=== PATIENT | male | born 1965 | race Caucasian/White ===

== ENCOUNTER 2016-05-02 15:32 | Emergency (ER) | payer BC ==
--- NOTE | 2016-05-02 16:42 | DIAGNOSTIC IMAGING REPORT ---
PROCEDURE: XR CHEST 1 VIEW INDICATION: CHEST PAIN TECHNIQUE: Portable AP view 04:00 p.m. COMPARISON: Chest 11/16/2007 FINDINGS: Lungs are clear. Heart and mediastinum are normal. Thorax is normal. IMPRESSION: 1. Negative chest.
--- NOTE | 2016-05-02 17:18 | ED NURSING NOTES ---
Clinical Report - Nurses [address] [place] [address] 05/02/2016 15:33 Patient: TERENCE CRYSTAL TRIAGE Triage time 15:45. Acuity: LEVEL 3. Chief Complaint: CHEST PAIN and DISCOMFORT. 15:45 05/02/16. 15:53 05/02/16. Alert. ( Chest pain this AM at 0930 and lasted 40 min then again at 1500). --15:53 Walter José R.N. 15:45 05/02/16. BP: 198/108. HR: 101. RR: 15. O2 saturation: 100% on nasal cannula at 2 liters/minute. Temp: 98.2 F (oral). --15:53 Walter José R.N. Weight: 97.9 kg stated. Height/Length: 68 inches Per Patient. BMI: 32.8. --15:49 Walter José R.N. Medications Lantus Subcutaneous 50 units, 2x a day. --15:51 Walter José R.N. Novolog sliding scale. --15:51 Walter José R.N. ASA 81 mg, daily. --15:52 Walter José R.N. Prilosec Oral, , have not taken in a while. --15:52 Walter José R.N. Medication/allergy information source: the patient. --15:53 Walter José R.N. Allergies Actos. --15:52 Walter José R.N. Statins. --15:52 Walter José R.N. History Arrived by private vehicle. Historian: patient. Accompanied by family. Primary physician ([facility]). 15:45 05/02/16. This started today. 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 PAST MEDICAL HX: Immunizations: up-to-date. SOCIAL HX: Former smoker. Occasional alcohol use; consumes beer weekly. No drug use. FALL RISK ASSESSMENT: Fall risk assessment completed. No fall risk identified. NUTRITIONAL RISK ASSESSMENT: The nutritional risk assessment revealed no deficiencies. FUNCTIONAL ASSESSMENT: Functional assessment: no impairments noted. LEARNING NEEDS ASSESSMENT: The learning needs assessment revealed no barriers. SKIN INTEGRITY ASSESSMENT: Skin integrity risk assessment completed. No skin integrity risk identified. --15:53 Walter José R.N. SOCIAL HX: No infectious disease exposure. ABUSE ASSESSMENT: No report of abuse. --15:53 Walter José R.N. PROBLEMS: Gastroesophageal Reflux Disease. Diabetes Mellitus. --15:52 Walter José R.N. ADDITIONAL SURGERIES: Nasal surgery. --15:53 Walter José R.N. Assessment 15:45 05/02/16. --15:53 Walter José R.N. Interventions 15:45 05/02/16. 15:45 05/02/16. ID and allergy band on patient. To treatment room. --15:53 Walter José R.N. PHYSICAL ASSESSMENT 15:49 05/02/16. To room via wheelchair. GENERAL / NEURO / PSYCH: Alert. Oriented X 4. Appears in pain. RESPIRATORY: Respirations not labored. CVS: Normal sinus rhythm noted. SKIN: Skin is warm and dry. --15:49 Walter José R.N. NURSING PROGRESS NOTES 15:45 05/02/16. EKG time: (3401). EKG was ordered, performed by a tech and shown to the ED physician. --15:45 Walter José R.N. 15:49 05/02/16. The plan of care for this patient has been created. Oxygen administered at 2 liters. cook station, pulse oximeter and NIBP monitor placed on patient; monitor alarms on. Patient gowned. Head of bed elevated. Reassurance given. Two patient identifiers checked. Call light placed in reach. Side rails up x 2. Bed placed in lowest position. Brakes of bed on. Brakes of chair on. --15:49 Walter José R.N. 15:49 05/02/16. Cardiac rhythm: normal sinus rhythm. --15:49 Walter José R.N. 15:50 05/02/2016 Aspirin PO 325 mg given. Allergies verified and confirmed 5 rights. --15:50 Meaghan Viveros R.N. 15:54 05/02/2016 Site #1 started via IV in the right antecubital space with an 20g angiocath, with aseptic technique and good blood return; one attempt. Blood drawn: rainbow set. Labeled in the presence of the patient and sent to the lab. Saline lock flushed with 10 mL saline. --15:54 Walter José R.N. 15:54 05/02/16. BP: 190/97. HR: 99. RR: 18. O2 saturation: 100% on nasal cannula at 2 liters/minute. --15:55 Walter José R.N. 15:55 05/02/16. --15:55 Walter José R.N. 15:58 05/02/16. BP: 190/97. HR: 95. RR: 15. O2 saturation: 100% on nasal cannula at 2 liters/minute. Pain level now: 0/10. --15:59 Walter José R.N. 15:59 05/02/16. Cardiac rhythm: normal sinus rhythm. --15:59 Walter José R.N. 15:59 05/02/16. ( states pain is a 1/10 prior to NTG). --15:59 Walter José R.N. 16:00 05/02/2016 Nitroglycerin SL 0.4 mg given. Allergies verified and confirmed 5 rights. --16:00 Walter José R.N. 16:08 05/02/16. Cardiac rhythm: normal sinus rhythm. --16:08 Walter José R.N. 16:08 05/02/16. BP: 177/99. HR: 99. RR: 14. O2 saturation: 100% on nasal cannula at 2 liters/minute. --16:08 Walter José R.N. 16:56 05/02/16. BP: 151/80. HR: 88. RR: 18. O2 saturation: 100% on nasal cannula at 2 liters/minute. --16:56 Walter José R.N. 16:56 05/02/16. Cardiac rhythm: normal sinus rhythm. --16:56 Walter José R.N. 16:56 05/02/16. Patient and family informed about reason for wait and about plan of care. --16:56 Walter José R.N. 17:06 05/02/16. ( ERMD talking with Cardiology for referral). --17:06 Walter José R.N. 17:24 05/02/16. BP: 142/75. HR: 90. RR: 14. O2 saturation: 100% on nasal cannula at 2 liters/minute. --17:24 Walter José R.N. 17:24 05/02/16. Cardiac rhythm: normal sinus rhythm; (85). --17:24 Walter José R.N. 17:25 05/02/16. ( Pt to transfer to [facility]). --17:25 Walter José R.N. 17:40 05/02/16. ( Pt to transfer due to indeterminate troponins). --17:40 Walter José R.N. 17:55 05/02/2016 Heparin IVP 5000 unit given over 1 minute(s) via site #1. Allergies verified and confirmed 5 rights. IV patency established. IV site checked: no pain, redness, or swelling. IV flushed thoroughly pre- and post-medication administration. IVP given by RN (Double verified with additional RN). --17:55 Walter José R.N. 17:57 05/02/2016 Heparin 25,000 Units in 500 mLs * Drip IV 1000 Units/hr 20 mLs/hr 1000 units/hr --17:57 Walter José R.N. 17:58 05/02/16. Cardiac rhythm: normal sinus rhythm. --17:58 Walter José R.N. 17:57 05/02/16. BP: 152/78. HR: 88. RR: 15. O2 saturation: 99% on nasal cannula at 2 liters/minute. Pain level now: 0/10. --17:58 Walter José R.N. 17:58 05/02/16. ( Pt to transfer due to ECG changes). --17:58 Walter José R.N. 18:06 05/02/16. ( Oral care completed, pt is NPO, pt does not have chest pain, pt c/o pain from the left elbow down). --18:06 Walter José R.N. 18:12 05/02/16. Patient and family informed about reason for wait and about plan of care. --18:12 Walter José R.N. 18:12 05/02/16. Patient waiting for transportation and admit bed. --18:12 Walter José R.N. 18:31 05/02/16. ( Blood drawn, 2nd trop, by collision technician). --18:31 Walter José R.N. 19:05/02/16. Cardiac rhythm: normal sinus rhythm. --19:01 Walter José R.N. 19:01 05/02/16. BP: 137/77. HR: 86. RR: 14. O2 saturation: 100% on nasal cannula at 2 liters/minute. --19:01 Walter José R.N. 19:02 05/02/16. ( Denies pain except for pain from left elbow down to left hand). --19:02 Walter José R.N. 19:02 05/02/16. Patient and family informed about reason for wait and about plan of care. --19:02 Walter José R.N. 19:08 05/02/16. Care transferred and report given. --19:08 Walter José R.N. 19:47 05/02/16. BP: 143/78. HR: 80. O2 saturation: 97%. --19:48 Vickey Storm R.N. ( Pt resting in bed in no distress no signs of bleeding verbalized understanding of discharge instructions). --20:08 Vickey Storm R.N. Finger stick glucose: 2020: 196 mg/dL. --20:28 Renuka Hardin ( Pt ambulated from bathroom steady on his feet, pt given sandwich per MD). --20:39 Vickey Storm R.N. 21:15 05/02/16. BP: 149/78. HR: 76. RR: 18. O2 saturation: 98%. Pain level now 0/10. --21:16 Vickey Storm R.N. DISPOSITION / DISCHARGE 17:24 05/02/16. Patient's personal items include, All Belongings given to family. --17:24 Walter José R.N. Report was given to a nurse via a phone call. Report included patient's care, treatment, medications, reviewed medication reconcilliation, and condition (including any recent changes or anticipated changes). All questions were answered. Report was acknowledged. (Report called to rufina rodgers). Patient has no belongings. Patient's personal items include: shirt and pants. --20:27 Vickey Storm R.N. 20:26 05/02/16. BP: 144/63. HR: 75. O2 saturation: 100%. --20:27 Vickey Storm R.N. Departure time: 2220 22:22 May 02 2016. The patient was discharged by the physician. He left the Emergency Department via ambulance. Transported via stretcher. ( Pt transferred via gurney and ems and out of facility. Pt alert and oriented no needs at this). Patient's personal items include, shoes 22:22 May 02 2016. --22:22 Vickey Storm R.N. 22:20 05/02/16. BP: 125/70. HR: 76. RR: 18. O2 saturation: 100%. Temp: 98.0 F. Pain level now 1/10. --22:22 Vickey Storm R.N. Locked/Released at 05/03/2016 3:00 by Vickey Storm R.N.
--- NOTE | 2016-05-02 17:18 | ED ORDER SUMMARY ---
..... Patient: TERENCE CRYSTAL OrderSheet [facility] VisitID: [id number] [place] [address] 51y, M Registration Date/Time: 05/02/2016 ORDER SHEET Weight: 97.9 kg (stated) Allergies: Actos, Statins GENERAL ORDERS: Compliance Coordinator (Continuous) (15:54 05/02/2016 JBoardley R.N. per protocol) (15:54 JBoardley R.N.) Chest 1V Urgent (15:54 05/02/2016 JBoardley R.N. per protocol) (16:02 JBoardley R.N.) Cardiac Panel Stat (15:54 05/02/2016 JBoardley R.N. per protocol) (16:37 JBoardley R.N.) Oxygen (2 L/min) (NC) (15:54 05/02/2016 JBoardley R.N. per protocol) (15:54 JBoardley R.N.) Pulse oximeter (15:54 05/02/2016 JBoardley R.N. per protocol) (15:54 JBoardley R.N.) EKG - ER Stat (15:54 05/02/2016 JBoardley R.N. per protocol) (15:54 JBoardley R.N.) Troponin-I Urgent (18:02 05/02/2016 Christopher Russo) (18:30 JBoardley R.N.) MEDICATION ORDERS: Aspirin PO 325 mg (Do not crush or chew, NOW) (15:50 05/02/2016 MWinterer R.N. per protocol) (15:50 MWinterer R.N.) NitroGLYCERIN SL 0.4 mg (x3 PRN Chest Pain) (16:00 05/02/2016 JBoardley R.N. verbal order read back to Christopher Russo) (16:00 JBoardley R.N.) IV FLUIDS: IV Saline Lock (15:54 05/02/2016 JBoardley R.N. per protocol) (15:54 JBoardley R.N.) Heparin IV : initial bolus 60 units/kg, then none - for X1 (HIGH ALERT MEDICATION) (max 5000 units) (17:43 05/02/2016 Christopher Russo) (Ack 17:43 Evelyn R.N.) (17:55 Evelyn R.N.) Heparin IV : initial bolus none -, then 12 units/kg/hr for 24h (HIGH ALERT MEDICATION, NOW) (max dose of 1000 units an hour) (17:43 05/02/2016 Christopher Russo) (Ack 17:44 Evelyn R.N.) (17:57 Evelyn R.N.) ORDER SHEET NOTES: [Electronically signed by Vickey Storm R.N. (03:00 05/03/2016)] [Electronically signed by Marvin Fierro Dr. (19:17 05/04/2016)] [Electronically locked/signed by Vickey Storm R.N. (03:00 05/03/2016)]
--- NOTE | 2016-05-02 17:18 | ED ORDER SUMMARY ---
..... Patient: TERENCE CRYSTAL OrderSheet [facility] VisitID: [id number] [place] [address] 51y, M Registration Date/Time: 05/02/2016 ORDER SHEET Weight: 97.9 kg (stated) Allergies: Actos, Statins GENERAL ORDERS: Partnership Manager (Continuous) (15:54 05/02/2016 JBoardley R.N. per protocol) (15:54 JBoardley R.N.) Chest 1V Urgent (15:54 05/02/2016 JBoardley R.N. per protocol) (16:02 JBoardley R.N.) Cardiac Panel Stat (15:54 05/02/2016 JBoardley R.N. per protocol) (16:37 JBoardley R.N.) Oxygen (2 L/min) (NC) (15:54 05/02/2016 JBoardley R.N. per protocol) (15:54 JBoardley R.N.) Pulse oximeter (15:54 05/02/2016 JBoardley R.N. per protocol) (15:54 JBoardley R.N.) EKG - ER Stat (15:54 05/02/2016 JBoardley R.N. per protocol) (15:54 JBoardley R.N.) Troponin-I Urgent (18:02 05/02/2016 Christopher Russo) (18:30 JBoardley R.N.) MEDICATION ORDERS: Aspirin PO 325 mg (Do not crush or chew, NOW) (15:50 05/02/2016 MWinterer R.N. per protocol) (15:50 MWinterer R.N.) NitroGLYCERIN SL 0.4 mg (x3 PRN Chest Pain) (16:00 05/02/2016 JBoardley R.N. verbal order read back to Christopher Russo) (16:00 JBoardley R.N.) IV FLUIDS: IV Saline Lock (15:54 05/02/2016 JBoardley R.N. per protocol) (15:54 JBoardley R.N.) Heparin IV : initial bolus 60 units/kg, then none - for X1 (HIGH ALERT MEDICATION) (max 5000 units) (17:43 05/02/2016 Christopher Russo) (Ack 17:43 Evelyn R.N.) (17:55 Evelyn R.N.) Heparin IV : initial bolus none -, then 12 units/kg/hr for 24h (HIGH ALERT MEDICATION, NOW) (max dose of 1000 units an hour) (17:43 05/02/2016 Christopher Russo) (Ack 17:44 Evelyn R.N.) (17:57 Evelyn R.N.) ORDER SHEET NOTES: [Electronically signed by Vickey Storm R.N. (03:00 05/03/2016)] [Electronically signed by Marvin Fierro Dr. (19:17 05/04/2016)] [Electronically locked/signed by Vickey Storm R.N. (03:00 05/03/2016)]
--- NOTE | 2016-05-02 17:18 | ED NURSING NOTES ---
Clinical Report - Nurses [address] [place] [address] 05/02/2016 15:33 Patient: TERENCE CRYSTAL TRIAGE Triage time 15:45. Acuity: LEVEL 3. Chief Complaint: CHEST PAIN and DISCOMFORT. 15:45 05/02/16. 15:53 05/02/16. Alert. ( Chest pain this AM at 0930 and lasted 40 min then again at 1500). --15:53 Walter José R.N. 15:45 05/02/16. BP: 198/108. HR: 101. RR: 15. O2 saturation: 100% on nasal cannula at 2 liters/minute. Temp: 98.2 F (oral). --15:53 Walter José R.N. Weight: 97.9 kg stated. Height/Length: 68 inches Per Patient. BMI: 32.8. --15:49 Walter José R.N. Medications Lantus Subcutaneous 50 units, 2x a day. --15:51 Walter José R.N. Novolog sliding scale. --15:51 Walter José R.N. ASA 81 mg, daily. --15:52 Walter José R.N. Prilosec Oral, , have not taken in a while. --15:52 Walter José R.N. Medication/allergy information source: the patient. --15:53 Walter José R.N. Allergies Actos. --15:52 Walter José R.N. Statins. --15:52 Walter José R.N. History Arrived by private vehicle. Historian: patient. Accompanied by family. Primary physician ([facility]). 15:45 05/02/16. This started today. 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 PAST MEDICAL HX: Immunizations: up-to-date. SOCIAL HX: Former smoker. Occasional alcohol use; consumes beer weekly. No drug use. FALL RISK ASSESSMENT: Fall risk assessment completed. No fall risk identified. NUTRITIONAL RISK ASSESSMENT: The nutritional risk assessment revealed no deficiencies. FUNCTIONAL ASSESSMENT: Functional assessment: no impairments noted. LEARNING NEEDS ASSESSMENT: The learning needs assessment revealed no barriers. SKIN INTEGRITY ASSESSMENT: Skin integrity risk assessment completed. No skin integrity risk identified. --15:53 Walter José R.N. SOCIAL HX: No infectious disease exposure. ABUSE ASSESSMENT: No report of abuse. --15:53 Walter José R.N. PROBLEMS: Gastroesophageal Reflux Disease. Diabetes Mellitus. --15:52 Walter José R.N. ADDITIONAL SURGERIES: Nasal surgery. --15:53 Walter José R.N. Assessment 15:45 05/02/16. --15:53 Walter José R.N. Interventions 15:45 05/02/16. 15:45 05/02/16. ID and allergy band on patient. To treatment room. --15:53 Walter José R.N. PHYSICAL ASSESSMENT 15:49 05/02/16. To room via wheelchair. GENERAL / NEURO / PSYCH: Alert. Oriented X 4. Appears in pain. RESPIRATORY: Respirations not labored. CVS: Normal sinus rhythm noted. SKIN: Skin is warm and dry. --15:49 Walter José R.N. NURSING PROGRESS NOTES 15:45 05/02/16. EKG time: (0990). EKG was ordered, performed by a tech and shown to the ED physician. --15:45 Walter José R.N. 15:49 05/02/16. The plan of care for this patient has been created. Oxygen administered at 2 liters. school bus monitor, pulse oximeter and NIBP monitor placed on patient; monitor alarms on. Patient gowned. Head of bed elevated. Reassurance given. Two patient identifiers checked. Call light placed in reach. Side rails up x 2. Bed placed in lowest position. Brakes of bed on. Brakes of chair on. --15:49 Walter José R.N. 15:49 05/02/16. Cardiac rhythm: normal sinus rhythm. --15:49 Walter José R.N. 15:50 05/02/2016 Aspirin PO 325 mg given. Allergies verified and confirmed 5 rights. --15:50 Meaghan Viveros R.N. 15:54 05/02/2016 Site #1 started via IV in the right antecubital space with an 20g angiocath, with aseptic technique and good blood return; one attempt. Blood drawn: rainbow set. Labeled in the presence of the patient and sent to the lab. Saline lock flushed with 10 mL saline. --15:54 Walter José R.N. 15:54 05/02/16. BP: 190/97. HR: 99. RR: 18. O2 saturation: 100% on nasal cannula at 2 liters/minute. --15:55 Walter José R.N. 15:55 05/02/16. --15:55 Walter José R.N. 15:58 05/02/16. BP: 190/97. HR: 95. RR: 15. O2 saturation: 100% on nasal cannula at 2 liters/minute. Pain level now: 0/10. --15:59 Walter José R.N. 15:59 05/02/16. Cardiac rhythm: normal sinus rhythm. --15:59 Walter Joés R.N. 15:59 05/02/16. ( states pain is a 1/10 prior to NTG). --15:59 Walter José R.N. 16:00 05/02/2016 Nitroglycerin SL 0.4 mg given. Allergies verified and confirmed 5 rights. --16:00 Walter José R.N. 16:08 05/02/16. Cardiac rhythm: normal sinus rhythm. --16:08 Walter José R.N. 16:08 05/02/16. BP: 177/99. HR: 99. RR: 14. O2 saturation: 100% on nasal cannula at 2 liters/minute. --16:08 Walter José R.N. 16:56 05/02/16. BP: 151/80. HR: 88. RR: 18. O2 saturation: 100% on nasal cannula at 2 liters/minute. --16:56 Walter José R.N. 16:56 05/02/16. Cardiac rhythm: normal sinus rhythm. --16:56 Walter José R.N. 16:56 05/02/16. Patient and family informed about reason for wait and about plan of care. --16:56 Walter José R.N. 17:06 05/02/16. ( ERMD talking with Cardiology for referral). --17:06 Walter José R.N. 17:24 05/02/16. BP: 142/75. HR: 90. RR: 14. O2 saturation: 100% on nasal cannula at 2 liters/minute. --17:24 Walter José R.N. 17:24 05/02/16. Cardiac rhythm: normal sinus rhythm; (85). --17:24 Walter José R.N. 17:25 05/02/16. ( Pt to transfer to [facility]). --17:25 Walter José R.N. 17:40 05/02/16. ( Pt to transfer due to indeterminate troponins). --17:40 Walter José R.N. 17:55 05/02/2016 Heparin IVP 5000 unit given over 1 minute(s) via site #1. Allergies verified and confirmed 5 rights. IV patency established. IV site checked: no pain, redness, or swelling. IV flushed thoroughly pre- and post-medication administration. IVP given by RN (Double verified with additional RN). --17:55 Walter José R.N. 17:57 05/02/2016 Heparin 25,000 Units in 500 mLs * Drip IV 1000 Units/hr 20 mLs/hr 1000 units/hr --17:57 Walter José R.N. 17:58 05/02/16. Cardiac rhythm: normal sinus rhythm. --17:58 Walter José R.N. 17:57 05/02/16. BP: 152/78. HR: 88. RR: 15. O2 saturation: 99% on nasal cannula at 2 liters/minute. Pain level now: 0/10. --17:58 Walter José R.N. 17:58 05/02/16. ( Pt to transfer due to ECG changes). --17:58 Walter José R.N. 18:06 05/02/16. ( Oral care completed, pt is NPO, pt does not have chest pain, pt c/o pain from the left elbow down). --18:06 Walter José R.N. 18:12 05/02/16. Patient and family informed about reason for wait and about plan of care. --18:12 Walter José R.N. 18:12 05/02/16. Patient waiting for transportation and admit bed. --18:12 Walter José R.N. 18:31 05/02/16. ( Blood drawn, 2nd trop, by ekg tech). --18:31 Walter José R.N. 19:05/02/16. Cardiac rhythm: normal sinus rhythm. --19:01 Walter José R.N. 19:01 05/02/16. BP: 137/77. HR: 86. RR: 14. O2 saturation: 100% on nasal cannula at 2 liters/minute. --19:01 Walter José R.N. 19:02 05/02/16. ( Denies pain except for pain from left elbow down to left hand). --19:02 Walter José R.N. 19:02 05/02/16. Patient and family informed about reason for wait and about plan of care. --19:02 Walter José R.N. 19:08 05/02/16. Care transferred and report given. --19:08 Walter José R.N. 19:47 05/02/16. BP: 143/78. HR: 80. O2 saturation: 97%. --19:48 Vickey Storm R.N. ( Pt resting in bed in no distress no signs of bleeding verbalized understanding of discharge instructions). --20:08 Vickey Storm R.N. Finger stick glucose: 2020: 196 mg/dL. --20:28 Renuka Hardin ( Pt ambulated from bathroom steady on his feet, pt given sandwich per MD). --20:39 Vickey Storm R.N. 21:15 05/02/16. BP: 149/78. HR: 76. RR: 18. O2 saturation: 98%. Pain level now 0/10. --21:16 Vickey Storm R.N. DISPOSITION / DISCHARGE 17:24 05/02/16. Patient's personal items include, All Belongings given to family. --17:24 Walter José R.N. Report was given to a nurse via a phone call. Report included patient's care, treatment, medications, reviewed medication reconcilliation, and condition (including any recent changes or anticipated changes). All questions were answered. Report was acknowledged. (Report called to rufina rodgers). Patient has no belongings. Patient's personal items include: shirt and pants. --20:27 Vickey Storm R.N. 20:26 05/02/16. BP: 144/63. HR: 75. O2 saturation: 100%. --20:27 Vickey Storm R.N. Departure time: 2220 22:22 May 02 2016. The patient was discharged by the physician. He left the Emergency Department via ambulance. Transported via stretcher. ( Pt transferred via gurney and ems and out of facility. Pt alert and oriented no needs at this). Patient's personal items include, shoes 22:22 May 02 2016. --22:22 Vickey Storm R.N. 22:20 05/02/16. BP: 125/70. HR: 76. RR: 18. O2 saturation: 100%. Temp: 98.0 F. Pain level now 1/10. --22:22 Vickey Storm R.N. Locked/Released at 05/03/2016 3:00 by Vickey Storm R.N.
--- NOTE | 2016-05-02 17:18 | ED CLINICAL REPORT ---
Clinical Report - Physicians/Mid Levels [facility] [address] [place] [place] [address] 05/02/2016 15:33 Patient: TERENCE CRYSTAL Arrived- By private vehicle. Historian- patient. HISTORY OF PRESENT ILLNESS Chief Complaint: CHEST PAIN. At its maximum, severity described as moderate. When seen in the E.D., severity described as moderate. Modifying factors- worsened by exertion. Relieved by rest. This started today, is still present but is better now and is now gone. It was abrupt in onset and has been constant. Onset during moderate exertion. It is described as pressure and tightness and it is described as located in the left chest area and radiating to the left jaw and left arm. The patient has had difficulty breathing and nausea and has experienced diaphoresis. No vomiting. (states he was walking from the barn to the house. reports no hx of PE/DVT, leg swelling, recent trauma, surgeries, or hemoptysis.). Similar symptoms previously: (reports having chest pain in the past but not this bad). Recent medical care: Not recently seen/assessed. REVIEW OF SYSTEMS No fever, chills, pedal edema or calf pain. All systems otherwise negative, except as recorded above. PAST HISTORY See nurses notes. Denies the following risk factors for DVT/PE - history of DVT and pulmonary embolism, recent surgery, recent CO and congestive heart failure. Denies the following risk factors for DVT/PE - cancer, clotting disorder, estrogens, obesity and immobility. Denies the following risk factors for DVT/PE - advanced in age and vena cava filter. SOCIAL HISTORY Former smoker. No alcohol use or drug use. No recent travel. Is a local resident. FAMILY HISTORY History of heart disease in first-degree relative (mother and father) (unsure age). ADDITIONAL NOTES The nursing notes have been reviewed. PHYSICAL EXAM Vital Signs: 05/02/2016 15:45 BP: 198/108. HR: 101. RR: 15. O2 saturation: 100%. Temp: 98.2 F. Hypertensive. Oxygen saturation normal. Appearance: Alert. Oriented X3. No acute distress. Eyes: Pupils equal, round and reactive to light. Eyes normal inspection. ENT: Ears normal. Nose normal. Pharynx normal. Neck: Normal inspection. Neck supple. No JVD. CVS: Normal heart rate and rhythm. Heart sounds normal. Pulses normal. No decreased pulses. Respiratory: No respiratory distress. Breath sounds normal. Chest nontender. No rales, rhonchi or wheezes. Abdomen: Soft and nontender. Bowel sounds normal. No organomegaly. No mass. Back: Normal external inspection. Skin: Skin warm and dry. Normal skin color. No rash. Normal skin turgor. Extremities: Extremities exhibit normal ROM. No lower extremity edema. LABS, X-RAYS, AND EKG EKG: No acute ischemia. Normal sinus rhythm. Rate: 98. Normal P waves. Normal STEF. Normal QRS complex. Normal axis. Normal ST and T waves, QT and QTc. No ST elevation or depression. Machine reads "STEMI" however patient without reciprocal changes, elevation is not > or = to 1 box high, and not in two contiguous leads. Does have poor R wave progression. The study has been interpreted contemporaneously. The study has been independently viewed by me. The EKG appears to be a good tracing. I do not agree with or confirm the computer reading of the EKG. Chest X-ray: No acute disease. Normal lung markings present. Normal heart size. No infiltrate. Views: PA. The X-rays were independently viewed by me and interpreted contemporaneously by me. Laboratory Tests: CBC w Diff: (DARIANA: 05/02/2016 15:49) ( MsgRcvd 05/02/2016 16:21) Final results Test Result Flag Units (Reference) WHITE BLOOD COUNT 9.1 K/uL (4.5-11.5) RED BLOOD COUNT 5.65 M/uL (4.50-5.90) HEMOGLOBIN 16.4 gm/dL (13.5-17.5) HEMATOCRIT 48.6 % (41.0-53.0) MEAN CELL VOLUME 86 fL (80-100) MEAN CORPUSCULAR HGB 29 pg (26-34) MEAN CORPUSCULAR HGB CONC 34 g/dL (31-37) RED CELL DISTRIBUTION WIDTH 13.6 % (11.6-14.8) PLATELET COUNT 172 K/uL (150-400) NEUTROPHIL % 67.1 % (50-75) LYMPH % 22.4 L % (25-40) MONO % 7.4 % (3-14) EOSINOPHIL % 2.4 % (0-4) BASOPHIL % 0.7 % (0-2) Troponin-I: (DARIANA: 05/02/2016 18:25) ( [facility] 05/02/2016 19:06) Final results Test Result Flag Units (Reference) TROPONIN I 0.66 ng/mL (0.00-1.5) TROPONIN REFERENCE RANGE:<0.1 NEGATIVE0.1-1.5 INDETERMINANT>1.5 POSITIVE CHEM 13 PANEL: (DARIANA: 05/02/2016 15:49) ( [facility] 05/02/2016 16:45) Final results Test Result Flag Units (Reference) GLUCOSE 316 H mg/dL (70-110) BUN 18 mg/dL (7-18) CREATININE 1.4 H mg/dL (0.6-1.3) Estimated GFR 56.34 mL/min Estimated GFR- >60 mL/min Note: Persistent reduction over 3 months in eGFR<60 mL/min/1.73 m2 defines CKD. Patients with eGFR values>=60 mL/min/1.73 m2 may also have CKD if evidence ofpersistent proteinuria. Additional information may be foundat www.[email or web address].org. SODIUM 137 mmol/L (136-145) POTASSIUM 3.9 mmol/L (3.5-5.1) CHLORIDE 101 mmol/L (98-107) CARBON DIOXIDE 26 mmol/L (21-32) CALCIUM 9.2 mg/dL (8.5-10.1) TOTAL PROTEIN 7.7 g/dL (6.4-8.2) ALBUMIN 4.0 g/dL (3.3-5.0) BILIRUBIN, TOTAL 0.7 mg/dL (0.0-1.0) ALKALINE PHOSPHATASE 77 U/L (46-116) AST (SGOT) 50 H U/L (15-37) ALT (SGPT) 97 H U/L (12-78) CPK 445 H U/L (24-260) MAGNESIUM 1.9 mg/dL (1.8-2.4) CK-MB 14.0 H ng/mL (0.5-3.2) %CKMB 3.1 % (0.0-4.0) TROPONIN I 0.36 ng/mL (0.00-1.5) TROPONIN REFERENCE RANGE:<0.1 NEGATIVE0.1-1.5 INDETERMINANT>1.5 POSITIVE . PROGRESS AND PROCEDURES Course of Care: The patient is a pleasant 51-year-old male with past medical history significant for hypertension, cholesterol cholesterol, diabetes presenting for evaluation of chest pain. The patient is currently resting in bed and in no acute distress. Patient is currently pain-free. The patient's EKG that was ordered from triage shows a some slight ST segment abnormalities. This does not meet criteria for STEMI In contrast to what the computer read is saying. The patient does have risk factors for acute coronary artery syndrome and will be evaluated with troponin as well as d-dimer for evaluation of pulmonary embolism and thoracic aortic aneurysm. chest x-ray and complete blood cell count was electrolyzes of also been ordered. Patient is agreeable to the treatment and plan. Patient's workup was significant for an intermediate troponin. Because of the patient's constellation of signs and symptoms here in the emergency department as well as the story that he had presented with, and concern for non-STEMI. Cardiology was called and recommended the patient be started on heparin and transferred to their facility. Spoke with Dr. Dubois. we will speak to the hospitalist in regards to admission of the patient to their facility via transfer. We spoke to the data warehouse consultant over at [facility] in [facility] in regards to the patient's workup. The patient will be transferred there as they do have beds. We are currently awaiting consult with the hospitalist who will be the that's accepting. We have spoken to the hospitalist and Sony explained to the patient's clinical presentation up until this point. Patient will be admitted to the hospital. Accepting doctor is Dr. Mazariegos. No further recommendations noted. We're currently waiting the patient's bed to be cleared and ready for transport. Discussed with patient workup and plan as well as course while here in the emergency department. Patient was agreeable to the treatment and plan. Informed written consent obtained for transfer to [facility]. That number available. Patient was transferred without incident. Just prior to patient's transfer, troponin noted to be increasing from the indeterminate range. Patient's troponin is 0.66. Troponin is still in the indeterminate range. Critical care performed (70 minutes). Time is exclusive of separately billable procedures. Time includes: direct patient care, patient reassessment, coordination of patient care, interpretation of data (laboratory data and chest xrays), review of patient's medical records, medical consultation, family consultation regarding treatment decisions and documentation of patient care. Disposition: Benefits, risks and alternatives to transfer explained to patient and family. Transferred to [facility]. CLINICAL IMPRESSION NSTEMI. (Electronically signed by Marvin Fierro Dr. 05/04/2016 19:17)
--- NOTE | 2016-05-04 19:18 | ED DISCHARGE INSTRUCTIONS ---
Patient: TERENCE CRYSTAL General Instructions [facility] VisitID: [id number] [address] [place] [address] 51y, M Registration Date/Time: 05/02/2016 NSTEMI. (Electronically signed by Marvin Fierro Dr. 05/04/2016 19:17)
--- NOTE | 2016-05-04 19:18 | ED MAR SUMMARY ---
..... Medication Administration Record [facility] [address] [place] [address] Patient: TERENCE CRYSTAL Visit ID: [id number] 51y, M Weight: 97.9 kg Height/Length: 68 in BMI: 32.8 ALLERGIES: Actos, Statins Given 15:50 05/02/2016 Meaghan Viveros R.N. Medication Administered: ASPIRIN [PO], Dose: 325 mg PO. Medication Ordered: Aspirin PO 325 mg (Do not crush or chew, NOW). Given 16:00 05/02/2016 Walter José R.N. Medication Administered: NITROGLYCERIN [SL], Dose: 0.4 mg SL. Medication Ordered: NitroGLYCERIN SL 0.4 mg (x3 PRN Chest Pain). Given 17:55 05/02/2016 Walter José R.N. Medication Administered: HEPARIN [IVP], Dose: 5000 unit IVP over 1 minute(s), Site: #1 right AC. Medication Ordered: Heparin IV : initial bolus 60 units/kg, then none - for X1 (HIGH ALERT MEDICATION) (max 5000 units). Start 17:57 05/02/2016 Walter José R.N. Medication Administered: Heparin 25,000 Units in 500 mLs *, Dose: 1000 Units/hr * Drip IV. Medication Ordered: Heparin IV : initial bolus none -, then 12 units/kg/hr for 24h (HIGH ALERT MEDICATION, NOW) (max dose of 1000 units an hour).
--- NOTE | 2016-05-04 19:18 | ED MAR SUMMARY ---
..... Medication Administration Record [facility] [address] [place] [address] Patient: TERENCE CRYSTAL Visit ID: [id number] 51y, M Weight: 97.9 kg Height/Length: 68 in BMI: 32.8 ALLERGIES: Actos, Statins Given 15:50 05/02/2016 Meaghan Viveros R.N. Medication Administered: ASPIRIN [PO], Dose: 325 mg PO. Medication Ordered: Aspirin PO 325 mg (Do not crush or chew, NOW). Given 16:00 05/02/2016 Walter José R.N. Medication Administered: NITROGLYCERIN [SL], Dose: 0.4 mg SL. Medication Ordered: NitroGLYCERIN SL 0.4 mg (x3 PRN Chest Pain). Given 17:55 05/02/2016 Walter José R.N. Medication Administered: HEPARIN [IVP], Dose: 5000 unit IVP over 1 minute(s), Site: #1 right AC. Medication Ordered: Heparin IV : initial bolus 60 units/kg, then none - for X1 (HIGH ALERT MEDICATION) (max 5000 units). Start 17:57 05/02/2016 Walter José R.N. Medication Administered: Heparin 25,000 Units in 500 mLs *, Dose: 1000 Units/hr * Drip IV. Medication Ordered: Heparin IV : initial bolus none -, then 12 units/kg/hr for 24h (HIGH ALERT MEDICATION, NOW) (max dose of 1000 units an hour).
--- NOTE | 2016-05-04 19:18 | ED DISCHARGE INSTRUCTIONS ---
Patient: TERENCE CRYSTAL General Instructions [facility] VisitID: [id number] [address] [place] [address] 51y, M Registration Date/Time: 05/02/2016 NSTEMI. (Electronically signed by Marvin Fierro Dr. 05/04/2016 19:17)
--- NOTE | 2016-05-04 19:18 | ED MED RECONCILIATION SUMMARY ---
Patient: TERENCE CRYSTAL Liz Medication Reconciliation Report [facility] VisitID: [id number] [address] [place] [address] 51y, M Registration Date/Time: 05/02/2016 Weight: 97.9 kg Height/Length: 68 in. BMI: 32.8 ALLERGIES: Actos, Statins The patient's Home Medications are listed below: THE FOLLOWING MEDICATIONS NEED TO BE RECONCILED: ASA 81 mg, daily Lantus Subcutaneous 50 units, 2x a day Novolog sliding scale Prilosec Oral, have not taken in a while The source(s) of the original Home Medication information: patient The following Medications were given to the patient in the Emergency Department: Aspirin [PO] PO 325 mg, administered: 05/02/2016 3:50:00 PM Nitroglycerin [SL] SL 0.4 mg, administered: 05/02/2016 4:00:00 PM Heparin [IVP] IVP 5000 unit, administered: 05/02/2016 5:55:00 PM Heparin 25,000 Units in 500 mLs Drip IV bolus 0, then 1000 Units/hr, administered: 05/02/2016 5:57:00 PM The following Medications were prescribed to the patient: None.
--- NOTE | 2016-05-04 19:18 | ED MED RECONCILIATION SUMMARY ---
Patient: TERENCE CRYSTAL Liz Medication Reconciliation Report [facility] VisitID: [id number] [address] [place] [address] 51y, M Registration Date/Time: 05/02/2016 Weight: 97.9 kg Height/Length: 68 in. BMI: 32.8 ALLERGIES: Actos, Statins The patient's Home Medications are listed below: THE FOLLOWING MEDICATIONS NEED TO BE RECONCILED: ASA 81 mg, daily Lantus Subcutaneous 50 units, 2x a day Novolog sliding scale Prilosec Oral, have not taken in a while The source(s) of the original Home Medication information: patient The following Medications were given to the patient in the Emergency Department: Aspirin [PO] PO 325 mg, administered: 05/02/2016 3:50:00 PM Nitroglycerin [SL] SL 0.4 mg, administered: 05/02/2016 4:00:00 PM Heparin [IVP] IVP 5000 unit, administered: 05/02/2016 5:55:00 PM Heparin 25,000 Units in 500 mLs Drip IV bolus 0, then 1000 Units/hr, administered: 05/02/2016 5:57:00 PM The following Medications were prescribed to the patient: None.
== END 2016-05-02 22:21 | disposition short-term general hospital (02) ==
LOC: ED SRH 15:32
DX: I21.4 Non-ST elevation (NSTEMI) myocardial infarction (principal); E11.9 Type 2 diabetes mellitus without complications; K21.9 Gastro-esophageal reflux disease without esophagitis; Z79.4 Long term (current) use of insulin; Z79.84 Long term (current) use of oral hypoglycemic drugs; Z88.8 Allergy status to other drugs, medicaments and biological substances; Z87.891 Personal history of nicotine dependence
CPT/HCPCS: 90074; 90100; 90616; 90617; 92610; 92720; 95059